=== PATIENT | male | born 1985 | race Caucasian/White ===

== ENCOUNTER 2017-01-24 11:15 | Emergency (ER) | payer OTHER ==
[2017-01-24 11:33] VITALS: BP 134/87; PULSE 68; RESP 16; TEMP 97.6
[2017-01-24] MEDS ORDERED: predniSONE 50 MG TAB PO STA (11:46)
[2017-01-24] MEDS ORDERED: KETOROLAC 60 MG/2 ML VIAL IM STA (11:46)
--- NOTE | 2017-01-24 11:51 | ED ---
General Adult HPI - General Chief complaint: Back Pain/Injury Stated complaint: Back Pain Time Seen by Provider: 01/24/17 11:30 Source: patient, RN notes reviewed Mode of arrival: ambulatory Limitations: no limitations - History of Present Illness Initial comments: This is a 31-year-old male who presents emergency Department with a past medical history of sciatica. Patient states over the last 3 days he feels like his sciatica his back. Patient states been taking anti-inflammatories and muscle like this but is not helping. Patient denies any new symptoms. Patient denies any numbness weakness per patient denies any urinary retention or urinary incontinence. Patient denies any new injury or trauma. Patient states the pain starts in the right side of the back and radiates on the posterior aspect of his right leg. Patient denies any other symptoms at this time - Related Data Home Medications Medication Instructions Recorded Confirmed Baclofen 10 mg PO TID 01/24/17 01/24/17 Chlorzoxazone [Parafon Forte Dsc] 500 mg PO TID PRN 01/24/17 01/24/17 Diclofenac Sodium [Voltaren] 50 mg PO BID 01/24/17 01/24/17 Meloxicam [Mobic] 7.5 mg PO DAILY 01/24/17 01/24/17 Previous Rx's Medication Instructions Recorded Hydrocodone/Acetaminophen [[place] 1 each PO Q4HR PRN #10 tab 01/24/17 5-325] predniSONE 40 mg PO DAILY #8 tab 01/24/17 Allergies Allergy/AdvReac Type Severity Reaction Status Date / Time Penicillins Allergy Unknown Verified 01/24/17 11:29 Review of Systems ROS Statement: Those systems with pertinent positive or pertinent negative responses have been documented in the HPI. ROS Other: All systems not noted in ROS Statement are negative. Past Medical History Additional Past Medical History / Comment(s): back pain History of Any Multi-Drug Resistant Organisms: None Reported Past Surgical History: No Surgical Hx Reported Past Psychological History: No Psychological Hx Reported Smoking Status: Never smoker Past Alcohol Use History: None Reported Past Drug Use History: Marijuana General Exam - General Exam Comments Initial Comments: GENERAL Patient is well-developed and well-nourished. Patient is in mild distress. EYES Patient's pupils are equal and round. Extraocular motion is intact SKIN Unremarkable NEURO The patient is alert and oriented 3 PYSCH Patient has normal interpersonal interactions. MUSCULOSKELETAL Patient is full range motion of all 4 times. Patient has a normal straight leg test bilaterally. Patient's perineum exam has normal sensation. Limitations: no limitations Course Vital Signs 01/24/17 11:31 Temperature 97.6 F Pulse Rate 68 Respiratory 16 Rate Blood Pressure 134/87 O2 Sat by Pulse 99 Oximetry Disposition Clinical Impression: Sciatica Disposition: HOME SELF-CARE Condition: Good Instructions: Sciatica (ED) Prescriptions: Hydrocodone/Acetaminophen [[place] 5-325] 1 each PO Q4HR PRN #10 tab PRN Reason: Pain predniSONE 40 mg PO DAILY #8 tab Referrals: Charlotte Amaral MD [Primary Care Provider] - 1-2 days Time of Disposition: 11:50
== END 2017-01-24 12:14 | disposition home or self-care (01) ==
LOC: EC 11:15
DX: M54.31 Sciatica, right side (principal); Z88.0 Allergy status to penicillin; Z79.1 Long term (current) use of non-steroidal anti-inflammatories (NSAID); Z79.899 Other long term (current) drug therapy
CPT/HCPCS: 99283; 96372; J1885; J7512

== ENCOUNTER 2017-04-23 10:34 | Emergency (ER) | payer OTHER ==
[2017-04-23 10:41] VITALS: BP 136/73; PULSE 86; RESP 18; TEMP 98.6
--- NOTE | 2017-04-23 10:59 | ED ---
General Adult HPI - General Chief complaint: Skin/Abscess/Foreign Body Stated complaint: post op incision opening, male gu Time Seen by Provider: 04/23/17 10:40 Source: patient, RN notes reviewed Mode of arrival: ambulatory Limitations: no limitations - History of Present Illness Initial comments: This is a 31-year-old male who presents emergency department after having had a vasectomy to weeks ago. Patient states as of yesterday the incision site opened a little bit and there was a little bit of drainage and redness around the site. Patient denies any fever patient denies any pain. Patient came in because he thought he needed to be sewn back up. Patient denies any dysuria hematuria urinary frequency. - Related Data Home Medications Medication Instructions Recorded Confirmed Baclofen 10 mg PO TID 01/24/17 01/24/17 Chlorzoxazone [Parafon Forte Dsc] 500 mg PO TID PRN 01/24/17 01/24/17 Diclofenac Sodium [Voltaren] 50 mg PO BID 01/24/17 01/24/17 Meloxicam [Mobic] 7.5 mg PO DAILY 01/24/17 01/24/17 Previous Rx's Medication Instructions Recorded Hydrocodone/Acetaminophen [[place] 1 each PO Q4HR PRN #10 tab 01/24/17 5-325] predniSONE 40 mg PO DAILY #8 tab 01/24/17 Sulfamethox-Tmp 800-160Mg [Bactrim 1 each PO Q12HR #20 tab 04/23/17 DS 800-160 mg] Allergies Allergy/AdvReac Type Severity Reaction Status Date / Time Penicillins Allergy Unknown Verified 04/23/17 10:41 Review of Systems ROS Statement: Those systems with pertinent positive or pertinent negative responses have been documented in the HPI. ROS Other: All systems not noted in ROS Statement are negative. Past Medical History Additional Past Medical History / Comment(s): back pain History of Any Multi-Drug Resistant Organisms: None Reported Past Surgical History: No Surgical Hx Reported Additional Past Surgical History / Comment(s): vastectomy Past Psychological History: No Psychological Hx Reported Smoking Status: Never smoker Past Alcohol Use History: None Reported Past Drug Use History: Marijuana General Exam - General Exam Comments Initial Comments: GENERAL Patient is well-developed and well-nourished. Patient is in mild distress. EYES Patient's pupils are equal and round. Extraocular motion is intact SKIN Scrotum has a very small opening on the incision line measuring about a half a centimeter there is a little bit of pus that was extracted. I cultured that area NEURO The patient is alert and oriented 3 PYSCH Patient has normal interpersonal interactions. MUSCULOSKELETAL Limitations: no limitations Course Vital Signs 04/23/17 10:38 Temperature 98.6 F Pulse Rate 86 Respiratory 18 Rate Blood Pressure 136/73 O2 Sat by Pulse 99 Oximetry Medical Decision Making - Medical Decision Making I spoke with Dr. Werner he wanted the patient placed on Bactrim and stated he wanted the patient follow-up in the office. Disposition Clinical Impression: Surgical wound dehiscence, Postoperative infection Disposition: HOME SELF-CARE Condition: Good Instructions: Wound Dehiscence (ED) Prescriptions: Sulfamethox-Tmp 800-160Mg [Bactrim DS 800-160 mg] 1 each PO Q12HR #20 tab Referrals: Charlotte Amaral MD [Primary Care Provider] - 1-2 days Time of Disposition: 11:15
== END 2017-04-23 11:35 | disposition home or self-care (01) ==
LOC: EC 10:34
DX: T81.31XA Disruption of external operation (surgical) wound, not elsewhere classified, initial encounter (principal); T81.4XXA Infection following a procedure, initial encounter; Z98.52 Vasectomy status; Z79.1 Long term (current) use of non-steroidal anti-inflammatories (NSAID); Z79.899 Other long term (current) drug therapy; Z88.0 Allergy status to penicillin
CPT/HCPCS: 87070; 87077; 87186; 87205; 99283

== ENCOUNTER → 2018-05-05 | Outpatient (CLI) | payer OTHER ==
--- NOTE | 2018-05-05 12:03 | CT ---
EXAMINATION TYPE: CT abdomen pelvis w con DATE OF EXAM: 05/05/2018 COMPARISON: None HISTORY: Patient complains of RLQ pain with questionable history of right inguinal hernia. CT DLP: 1416 mGycm Automated exposure control for dose reduction was used. TECHNIQUE: Helical acquisition of images was performed from the lung bases through the pelvis. CONTRAST: Performed with Oral Contrast and with IV Contrast, patient injected with 100 mL of Isovue 300. FINDINGS: LUNG BASES: Lung bases are well aerated. LIVER/GB: Hepatic parenchyma slightly hypoattenuated although does not meet criteria for hepatic stea tosis. No intrahepatic biliary ductal dilatation. No cholelithiasis. PANCREAS: No significant abnormality is seen. SPLEEN: No significant abnormality is seen. ADRENALS: No significant abnormality is seen. KIDNEYS: Kidneys enhance and excrete symmetrically without hydronephrosis. No suspicious renal lesion is seen. URINARY BLADDER: No significant abnormality is seen. PELVIC ADENOPATHY: No greater than 1 cm short axis lymph node is seen within the abdomen or pelvis. OSSEOUS STRUCTURES: Multilevel degenerative disc disease is seen most pronounced at L2-L3 with at le ast disc bulges at L4-L5 and L5-S1. BOWEL: Appendix is contrast-filled and within normal limits. No abnormal thickening of the terminal ileum is seen although the terminal ileum is decompressed approximately. No dilated large or small carmelo wel. Moderate amount retained colonic stool is seen throughout the bowel, limiting evaluation for mas s. Diffuse sigmoid wall thickening is likely due to incomplete distention. No pericolonic inflammator y fat stranding is seen. Solitary sigmoid diverticulum is identified. No inguinal hernia is present o n CT. IMPRESSION: NO FINDINGS CORRESPONDING THE PATIENT'S RIGHT LOWER QUADRANT PAIN. NO CT EVIDENCE OF INGUINAL HERNIA. NO EVIDENCE OF ACUTE APPENDICITIS. TERMINAL ILEUM IS INCOMPLETELY DISTENDED ALTHOUGH DOES NOT DEMONS TRATE FINDINGS SUSPICIOUS FOR TERMINAL ILEITIS AT THIS TIME.
== END | disposition home or self-care (01) ==
LOC: RADCTMAIN 09:43
PROVIDERS: ATTEND Family Medicine
DX: K63.89 Other specified diseases of intestine (principal); R10.30 Lower abdominal pain, unspecified
CPT/HCPCS: 74177; Q9967

== ENCOUNTER 2020-11-16 16:41 | Emergency (ER) | payer OTHER ==
[2020-11-16 16:52] VITALS: RESP 18; TEMP 98.6
[2020-11-16] MEDS: fentaNYL (PF) 50 MCG/ML 2 ML AMP IM ONE (17:04)
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
--- NOTE | 2020-11-16 17:22 | XR ---
EXAMINATION TYPE: XR ankle complete LT DATE OF EXAM: 11/16/2020 COMPARISON: NONE HISTORY: Pain TECHNIQUE: 3 views FINDINGS: Ankle mortise is anatomic. I see no fracture nor dislocation. Joint spaces are normal. IMPRESSION: Negative left ankle exam. No fracture.
--- NOTE | 2020-11-16 17:23 | XR ---
EXAMINATION TYPE: XR shoulder complete LT DATE OF EXAM: 11/16/2020 COMPARISON: NONE HISTORY: Pain TECHNIQUE: 3 views FINDINGS: I see no fracture nor dislocation. Joint spaces are normal. There are no pathologic calcifi cations. IMPRESSION: Negative left shoulder exam. No fracture.
--- NOTE | 2020-11-16 17:23 | XR ---
EXAMINATION TYPE: XR chest 2V DATE OF EXAM: 11/16/2020 COMPARISON: NONE HISTORY: Pain TECHNIQUE: 2 views FINDINGS: Heart and mediastinum are normal. Lungs are clear. Diaphragm is normal. Bony thorax is inta ct. IMPRESSION: Normal chest. Normal heart.
--- NOTE | 2020-11-16 17:26 | XR ---
EXAMINATION TYPE: XR pelvis AP view DATE OF EXAM: 11/16/2020 COMPARISON: NONE HISTORY: Pain TECHNIQUE: Single view FINDINGS: Pelvic ring is intact. Proximal femurs and hip joints are intact. Sacroiliac joints appear normal. There are phleboliths in the pelvis. There is some amorphous calcification inferior to the le ft hip joint. This could be foreign bodies. There is one similar fibrous cortical defect of the later al aspect of the right femoral neck. IMPRESSION: No fracture seen. Possible foreign bodies overlying the left ischium.
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
[2020-11-16 18:01] VITALS: BP 130/89; PULSE 62
[2020-11-16] MEDS: KETOROLAC 15 MG/ML 1 ML VIAL IM STA (18:31)
== END 2020-11-16 18:47 | disposition home or self-care (01) ==
LOC: EC 16:41
DX: S93.402A Sprain of unspecified ligament of left ankle, initial encounter (principal); S43.402A Unspecified sprain of left shoulder joint, initial encounter; F12.90 Cannabis use, unspecified, uncomplicated; Z79.1 Long term (current) use of non-steroidal anti-inflammatories (NSAID); Z79.52 Long term (current) use of systemic steroids; Z88.0 Allergy status to penicillin; V29.9XXA Motorcycle rider (driver) (passenger) injured in unspecified traffic accident, initial encounter; Y92.410 Unspecified street and highway as the place of occurrence of the external cause
CPT/HCPCS: 72170; 73030; 73610; 71046; 72125; 70450; 99284; 96372 ×2; J3010; J1885